=== PATIENT | female | born 1930 | race Caucasian/White ===

== ENCOUNTER → 2017-06-02 | Outpatient (CLI) | payer MEDICARE, BC, OTHER ==
[~2017-06-02] MED LIST: ACETAMINOPHEN325 M1 PO; ADVAIR HFA 115-12 G1 INH; ASPIR 8181 MG PO; AVAPRO300 MG PO; BETAPACE120 MG PO; CEFDINIR300 MG PO; CEFTIN 250 MG250 MG PO; CIPROFLOXACIN500 M1 PO; CRESTOR10 MG PO; FLORASTOR250 MG PO; LASIX 40 MG TAB40 M2 PO; LEVAQUIN 500 M500 M3 PO; LEXAPRO 10 MG T10 M2 PO; LOMOTIL TABLET1 EACH PO; MINOCIN100 MG PO; MIRAPEX0.75 MG PO; MOBIC15 MG PO; NEXIUM40 MG PO; OSELB75 PO; PLAVIX 75 MG TA75 M1 PO; POTASSIUM20 PO; PROAIR HFA8.5 GM INH; SINGULAIR 10 MG10 M1 PO; SULAR20 MG PO; TRAZODONE HCL50 MG PO; XANAX 0.5 MG0.5 MG PO; ZOLOFT25 MG PO
[2017-06-02 09:12] LABS: CALCIUM 9.3 mg/dL (8.5-10.1); POTASSIUM 3.9 mmol/L (3.5-5.1)
== END ==
LOC: M.LAB 08:34
PROVIDERS: Internal Medicine Cardiovascular Disease
DX: I50.32 Chronic diastolic (congestive) heart failure (principal); J96.00 Acute respiratory failure, unspecified whether with hypoxia or hypercapnia; J44.9 Chronic obstructive pulmonary disease, unspecified; J45.909 Unspecified asthma, uncomplicated; I63.8 Other cerebral infarction; N17.0 Acute kidney failure with tubular necrosis

== ENCOUNTER → 2017-09-07 | Outpatient (CLI) | payer MEDICARE, BC, OTHER | LOC: M.ULTRA 12:49 | DX: I70.90 Unspecified atherosclerosis (principal); G45.9 Transient cerebral ischemic attack, unspecified ==

== ENCOUNTER → 2017-12-09 | Outpatient (CLI) | payer MEDICARE, BC, OTHER ==
[~2017-12-09] VITALS: Ht 160 cm; Wt 61.7 kg
[2017-12-09 12:11] LABS: HEMATOCRIT 39.9 % (37.0-47.0); HEMOGLOBIN 13.3 gm/dL (12.0-15.0); MCH 29.9 pg (26.0-34.0); MCHC 33.3 g/dL (28.0-37.0); MCV 89.8 fL (80.0-100.0); MPV 9.9 fl. (7.2-11.1); RBC 4.45 mil/uL (4.20-5.00); RDW-CV 16.9 % (10.5-14.5); WBC 7.5 thou/uL (4.0-11.0)
[2017-12-09 12:19] LABS: APTT 26.6 Seconds (25.0-31.3); CALCIUM 9.3 mg/dL (8.5-10.1); POTASSIUM 4.5 mmol/L (3.5-5.1)
[2017-12-09 12:23] LABS: ALBUMIN 3.2 g/dL (3.4-5.0); TOTAL BILIRUBIN 0.7 mg/dL (<0.1-1.0); TOTAL PROTEIN 7.2 g/dL (6.4-8.2)
[2017-12-09 12:24] VITALS: BP 98/49
--- NOTE | 2017-12-09 15:04 | EKG ---
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: : 1930 Requested By: Yobani Garcia Order Number: [id number] Reading MD: Tavo Anthony Measurements Intervals [place] Rate: 54 P: 30 CA: 251 QRS: -4 QRSD: 129 T: -21 QT: 490 QTc: 465 Interpretive Statements Sinus rhythm Prolonged CA interval Right bundle branch block Compared to ECG 02/26/2017 02:53:28 T-wave abnormality no longer present Possible ischemia no longer present Electronically Signed On 12-09-2017 15:03:46 CDT by Tavo Anthony [email or web address] <ELECTRONICALLY SIGNED> By: Tavo Anthony MD, [facility] 12/09/17 1503 1149 [id number] Tavo Anthony MD, [facility] /EPI
[2017-12-09 15:49] VITALS: BP 114/57
--- NOTE | 2017-12-09 16:39 | CARD ---
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 Conscious Sedation Start time: 14:29 End Time: 15:00 Fentanyl 25 mcg Versed 1 mg Implanted Devices: Biotronik Eluna 8 DRT pro-MRI dual-chamber pacemaker generator. Biotronik Solia S 45, model #452260, serial #[id number] atrial lead. Biotronik Solia S 53, model #092402, serial #[id number] ventricular lead. Procedure The patient underwent informed consent. We discussed the details of the procedure including the risks, which include, but not limited to bleeding, infection, vascular damage, cardiac perforation, and pneumothorax. She understood these risks and was willing to proceed. As such, she was brought to the EP/Cardiac Catheterization laboratory in a fasting and sedated state and prepped and draped in a sterile fashion, received IV antibiotics prior to initiation of the procedure and a venogram was performed showing patency of the right axillary vein. The patient underwent conscious sedation, with no related complications. The patient was brought to the EP/Cardiac Catheterization laboratory and the right chest and shoulder were prepped and draped in a sterile manner. During this case, Fluoroscopy and visipaque 20cc [place] [address] CARDIAC CATH REPORT Name: MENDOZA DALLAS Room: [facility]#: [id number] Admission: 12/09/17 Attend Phys: Yobani Garcia MD Discharge: Date of : 32 Report #: [id number] The right subclavian region was infiltrated with 2% Lidocaine subcutaneous anesthesia. A transverse incision was made in the right upper chest cavity. The subcutaneous pocket was formed via blunt dissection. Percutaneous venous access was achieved and an introducer sheath was inserted into the right Subclavian vein. Through the introducer sheaths the atrial and ventricular lead wires were positioned in the right atrial appendage and right ventricular apex respectively. Utilizing fluoroscopic guidance, the atrial and ventricular lead wires were advanced over the wires and positioned in the right atria and right ventricle respectively. Capturing and sensing thresholds were verified. After informed consent was obtained the patient was brought to the cardiac catheterization lab. The area of the right shoulder was prepped and draped in sterile fashion. Local anesthesia was achieved with 2% lidocaine. After an initial incision was made a device pocket was formed over the right pectoralis muscle using electrocautery and blunt dissection. Next the right subclavian vein was accessed and a safety J guidewire advanced to the level of the right atrium under fluoroscopic guidance. The wire was externally fixed with a Francoise forcep. The right subclavian vein was accessed a second time and a second safety J guidewire advanced to the right atrium under fluoroscopic guidance. A 7 Yi tear-away introducer was advanced over the free guidewire. The dilator and guidewire were removed and a ventricular lead advanced to a secure position within the right ventricular apex. The lead was actively fixed. Thresholds were checked in satisfactory. There was no diaphragmatic stimulation with maximum output pacing. The tear-away introducer was then removed. Adequate slack was assured. Next a second 7 Yi tear-away introducer was advanced over the remaining guidewire. The dilator and guidewire were removed and an atrial lead advanced to a secure position within the right atrial appendage. The lead was actively fixed. Thresholds were checked and deemed to be satisfactory. There was no phrenic nerve stimulation with maximum output pacing. The tear-away introducer was removed. Adequate slack was assured. Next the atrial and ventricular leads were then secured within the device pocket using the designated cuffs and interrupted stitches of 2-0 Vicryl. The device pocket was then flushed with antibiotic dy solution. Next a dual-chamber pulse generator was attached to the atrial and ventricular leads. The pulse generator and redundant lead were placed within the device pocket. The deep tissues were then closed using interrupted stitches of 2-0 Vicryl. The skin incision was then closed with a single subcuticular stitch of 4-0 Vicryl. A sterile Telfa dressing was then covered with a Tegaderm after several Steri-Strips were incision. The patient [place] [address] CARDIAC CATH REPORT Name: MENDOZA DALLAS Room: [facility]#: [id number] Admission: 12/09/17 Attend Phys: Yobani Garcia MD Discharge: Date of : 32 Report #: [id number] without complication. Electrode Parameters P Wave: 2.10 mV R Wave: 6.50 mV Atrial Threshold: 1.2 V at 0.40 ms. Ventricular Threshold: 0.6 V at 0.40 ms. Atrial Resistance: 460 ohms Ventricular Resistance: 702 ohms Findings Specimens Removed: N/A Recommendations 1. Follow-up site check in one week. 2. Follow-up device check in one to 2 months. <ELECTRONICALLY SIGNED> By: Yobani Garcia MD, FAC 12/09/17 1639 1639 1639[facility], [place] Garcia MD, FAC /INF
== END | disposition home or self-care (01) ==
LOC: M.CL 11:10
PROVIDERS: Internal Medicine Cardiovascular Disease
DX: I49.5 Sick sinus syndrome (principal); J44.9 Chronic obstructive pulmonary disease, unspecified; I25.2 Old myocardial infarction; Z90.49 Acquired absence of other specified parts of digestive tract; Z87.19 Personal history of other diseases of the digestive system; Z85.3 Personal history of malignant neoplasm of breast; Z86.73 Personal history of transient ischemic attack (TIA), and cerebral infarction without residual deficits; Z79.82 Long term (current) use of aspirin; Z79.899 Other long term (current) drug therapy; Z79.01 Long term (current) use of anticoagulants

== ENCOUNTER → 2018-01-31 | Outpatient (CLI) | payer MEDICARE, BC, OTHER | LOC: M.RAD 14:43 | DX: J98.11 Atelectasis (principal); J84.10 Pulmonary fibrosis, unspecified; J44.9 Chronic obstructive pulmonary disease, unspecified; Z85.3 Personal history of malignant neoplasm of breast ==

== ENCOUNTER → 2018-03-21 | Outpatient (CLI) | payer MEDICARE, BC, OTHER | LOC: M.LAB 01:26 | DX: Z01.812 Encounter for preprocedural laboratory examination (principal) ==

== ENCOUNTER 2019-09-02 09:04 | Inpatient (IN) | payer MEDICARE, BC, OTHER ==
[~2019-09-02] VITALS: Ht 157.5 cm; Wt 59.0 kg
[2019-09-02 09:14] VITALS: BP 149/76
[2019-09-02] MEDS ORDERED: PROTONIX40 M2 PO (09:21)
[2019-09-02] MEDS ORDERED: RAYOS5 MG (09:22)
[2019-09-02] MEDS ORDERED: VOLTAREN GEL 1100 GM TOP (09:23)
[2019-09-02] MEDS ORDERED: PREDNISONE 20 M20 M1 PO (09:56)
[2019-09-02] MEDS ORDERED: ZPAK PO (09:56)
[2019-09-02 11:03] LABS: HEMATOCRIT 31.8 % (37.0-47.0); HEMOGLOBIN 10.4 gm/dL (12.0-15.0); MCH 27.1 pg (26.0-34.0); MCHC 32.8 g/dL (28.0-37.0); MCV 82.6 fL (80.0-100.0); MPV 10.4 fl. (7.2-11.1); NUCLEATED RBCS 0 /100WBC; PLATELET COUNT* 103 thou/uL (150-400); RBC 3.85 mil/uL (4.20-5.00); RDW-CV 19.5 % (10.5-14.5); WBC 11.6 thou/uL (4.0-11.0)
[2019-09-02 11:14] LABS: APTT 29.8 Seconds (25.0-31.3); CALCIUM 8.4 mg/dL (8.5-10.1); INR 1.1; POTASSIUM 3.2 mmol/L (3.5-5.1); PROTIME 11.1 Seconds (9.20-11.50)
[2019-09-02 11:24] LABS: MAGNESIUM 2.2 mg/dL (1.8-2.4); TOTAL PROTEIN 6.9 g/dL (6.4-8.2)
[2019-09-02 11:43] LABS: ABSOLUTE LYMPHOCYTES 0.7 thou/uL (0.8-5.3); ABSOLUTE MONOCYTES 0.5 thou/uL (0.0-1.2); ABSOLUTE NEUTROPHILS 10.4 thou/uL (1.6-8.1)
[2019-09-02 11:44] LABS: ANISOCYTOSIS 1+; PLATELET ESTIMATE DECREASED
[2019-09-02 13:05] VITALS: BP 132/78
--- NOTE | 2019-09-02 13:21 | NUR ---
PT ORIENTED TO ROOM AND UNIT, BED LOW AND LOCKED, SIDE RAILS UP X3. TELE APPLIED. WILL CONTINUE TO ASSESS.
[2019-09-02 16:00] VITALS: BP 120/70
[2019-09-02 20:00] VITALS: BP 128/57
[2019-09-03] VITALS: BP 126/57
[2019-09-03 04:00] VITALS: BP 112/61
[2019-09-03 06:01] LABS: HEMATOCRIT 31.2 % (37.0-47.0); HEMOGLOBIN 10.4 gm/dL (12.0-15.0); MCH 27.4 pg (26.0-34.0); MCHC 33.3 g/dL (28.0-37.0); MCV 82.1 fL (80.0-100.0); MPV 10.1 fl. (7.2-11.1); RBC 3.81 mil/uL (4.20-5.00); RDW-CV 19.4 % (10.5-14.5); WBC 6.3 thou/uL (4.0-11.0)
[2019-09-03 06:04] LABS: CALCIUM 8.6 mg/dL (8.5-10.1); CREATININE 0.9 mg/dL (0.6-1.3)
[2019-09-03 06:08] LABS: ALBUMIN 2.8 g/dL (3.4-5.0); MAGNESIUM 2.3 mg/dL (1.8-2.4); TOTAL BILIRUBIN 0.5 mg/dL (<0.1-1.0); TOTAL PROTEIN 6.9 g/dL (6.4-8.2)
[2019-09-03 06:13] LABS: POTASSIUM 4.7 mmol/L (3.5-5.1)
--- NOTE | 2019-09-03 07:37 | NUR ---
ASSUMED PATIENT CARE AT 1900. ASSESSMENT COMPLETED CHARTED. PATIENT IS A-PACED WITH A BBB ON THE MONITOR. HOURLY ROUNDING IN PLACE FOR PATIENT SAFETY. CLWR.
[2019-09-03 08:00] VITALS: BP 144/64
[2019-09-03 12:00] VITALS: BP 117/50
[2019-09-03 16:00] VITALS: BP 104/50
--- NOTE | 2019-09-03 16:09 | EKG ---
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: [facility] : 1930 Requested By: Rodrigo Ortega Order Number: [id number] MD: Yobani Garcia Measurements Intervals [place] Rate: 70 P: AR: 228 QRS: -4 QRSD: 140 T: -42 QT: 442 QTc: 477 Interpretive Statements Atrial-paced rhythm Right bundle branch block Baseline wander in lead(s) V1,V3 Compared to ECG 12/09/2017 11:49:45 Sinus rhythm no longer present First degree AV block no longer present Electronically Signed On 09-03-2019 16:08:07 CDT by Yobani Garcia [email or web address] <ELECTRONICALLY SIGNED> By: Yobani Garcia MD, FACC 09/03/19 1608 1038 1038 Yobani Garcia MD, FAC /EPI
--- NOTE | 2019-09-03 18:43 | NUR ---
PT PROGRESSED TOWARD GOALS UP AD JUANA PLEASANT NO CONCERNS DAUGHTER DROPPED OFF GOODIE BAG RESTING IN BED
[2019-09-03 20:00] VITALS: BP 121/71
[2019-09-04] VITALS: BP 131/70
[2019-09-04 04:00] VITALS: BP 151/60
[2019-09-04 05:35] LABS: HEMATOCRIT 30.7 % (37.0-47.0); HEMOGLOBIN 10.3 gm/dL (12.0-15.0); MCH 27.5 pg (26.0-34.0); MCHC 33.5 g/dL (28.0-37.0); MCV 82.1 fL (80.0-100.0); MPV 9.9 fl. (7.2-11.1); RBC 3.73 mil/uL (4.20-5.00); RDW-CV 19.7 % (10.5-14.5); WBC 10.6 thou/uL (4.0-11.0)
[2019-09-04 06:16] LABS: ALBUMIN 2.9 g/dL (3.4-5.0); CALCIUM 8.1 mg/dL (8.5-10.1); MAGNESIUM 2.3 mg/dL (1.8-2.4); POTASSIUM 3.9 mmol/L (3.5-5.1); TOTAL BILIRUBIN 0.4 mg/dL (<0.1-1.0); TOTAL PROTEIN 6.7 g/dL (6.4-8.2)
--- NOTE | 2019-09-04 07:07 | NUR ---
PATIENT PROGRESSING TOWARD GOALS. UP AD JUANA INDEPENDENTLY. PATIENT EXPRESSES DESIRE TO GET UP AND MOVE MORE. PATIENT VERY ACTIVE AND PLEASANT. NO CONCERNS OR SIGNIFICANT EVENTS THIS SHIFT.
[2019-09-04 08:00] VITALS: BP 118/53
[2019-09-04] MEDS ORDERED: DOXYCYCLINE 10100 MG PO (11:51)
[2019-09-04 12:16] VITALS: BP 118/53
[2019-09-04 12:25] VITALS: BP 118/53
--- NOTE | 2019-09-04 13:57 | NUR ---
pt has rested t/o shift without complaint. vss on ra. a paced on the monitor. pt to d/c to home and maintain quarantine guidelines. dc instructions reviewed with pt and pt reports understanding without further questions.
--- NOTE | 2019-09-04 14:59 | NUR ---
CASE MANAGEMENT WAS UNABLE TO SPEAK WITH PT.PRIOR TO HER DISCHARE. NURSING SAID WAS DISCHARGED HOME WITH SELF CARE AND DID NOT FEEL SHE HAD ANY DISCHARGE NEEDS. DAUGHTER SEEMED SUPPORTIVE.
== END 2019-09-04 14:10 | disposition home or self-care (01) | DRG 177 ==
LOC: M.ERS 09:04 → M.TBA-ER 11:16 → M.ORTHSURG 11:16
PROVIDERS: Family Medicine; ADMIT Internal Medicine
DX: J15.6 Pneumonia due to other Gram-negative bacteria (principal); J96.21 Acute and chronic respiratory failure with hypoxia; J44.1 Chronic obstructive pulmonary disease with (acute) exacerbation; J44.0 Chronic obstructive pulmonary disease with (acute) lower respiratory infection; I25.10 Atherosclerotic heart disease of native coronary artery without angina pectoris; Z20.828 Contact with and (suspected) exposure to other viral communicable diseases; Z90.12 Acquired absence of left breast and nipple; Z85.3 Personal history of malignant neoplasm of breast; Z86.73 Personal history of transient ischemic attack (TIA), and cerebral infarction without residual deficits; Z90.49 Acquired absence of other specified parts of digestive tract; I25.2 Old myocardial infarction; Z79.899 Other long term (current) drug therapy; Z79.82 Long term (current) use of aspirin; Z79.51 Long term (current) use of inhaled steroids; Z88.7 Allergy status to serum and vaccine; Z95.0 Presence of cardiac pacemaker

== ENCOUNTER 2020-01-06 06:59 | Emergency (ER) | payer MEDICARE, BC, OTHER ==
[~2020-01-06] VITALS: Ht 154.9 cm; Wt 59.9 kg
[~2020-01-06 06:59] MED LIST changes: +DOXYCYCLINE 10100 MG PO; +PREDNISONE 20 M20 M1 PO; +PROTONIX40 M2 PO; +RAYOS5 MG; +VOLTAREN GEL 1100 GM TOP; +ZPAK PO
[2020-01-06] MEDS ORDERED: MIRAPEX1.5 MG PO (07:17)
[2020-01-06] MEDS ORDERED: MIRTAZAPINE7.5 MG PO (07:17)
[2020-01-06 07:27] LABS: ABSOLUTE EOSINOPHILS 0.2 thou/uL (0.0-0.7); ABSOLUTE LYMPHOCYTES 0.9 thou/uL (0.8-5.3); ABSOLUTE MONOCYTES 0.5 thou/uL (0.0-1.2); ABSOLUTE NEUTROPHILS 4.4 thou/uL (1.6-8.1); BASOPHILS 0.7 %; EOSINOPHILS 3.8 %; HEMATOCRIT 31.2 % (37.0-47.0); HEMOGLOBIN 10.1 gm/dL (12.0-15.0); LYMPHOCYTES 14.6 %; MCHC 32.3 g/dL (28.0-37.0); MCV 71.2 fL (80.0-100.0); MONOCYTES 8.8 %; MPV 8.9 fl. (7.2-11.1); NUCLEATED RBCS 0 /100WBC; PLATELET COUNT* 106 thou/uL (150-400); POLYS 72.1 %; RBC 4.38 mil/uL (4.20-5.00); WBC 6.1 thou/uL (4.0-11.0)
[2020-01-06 07:41] LABS: APTT 25.9 Seconds (25.0-31.3); INR 1.1; PROTIME 11.2 Seconds (9.20-11.50)
[2020-01-06 07:50] LABS: CALCIUM 8.5 mg/dL (8.5-10.1); CREATININE 1.1 mg/dL (0.6-1.3); POTASSIUM 3.9 mmol/L (3.5-5.1)
[2020-01-06 08:03] LABS: ALBUMIN 3.2 g/dL (3.4-5.0); TOTAL BILIRUBIN 0.7 mg/dL (<0.1-1.0); TOTAL PROTEIN 7.3 g/dL (6.4-8.2)
[2020-01-06 08:42] VITALS: BP 179/80
== END 2020-01-06 08:43 | disposition home or self-care (01) ==
LOC: M.ERS 06:59
PROVIDERS: Family Medicine
DX: R04.0 Epistaxis (principal); J44.9 Chronic obstructive pulmonary disease, unspecified; Z86.73 Personal history of transient ischemic attack (TIA), and cerebral infarction without residual deficits; Z90.49 Acquired absence of other specified parts of digestive tract; Z90.12 Acquired absence of left breast and nipple; Z85.3 Personal history of malignant neoplasm of breast; Z88.7 Allergy status to serum and vaccine